=== PATIENT | male | born 1975 | race Two or more races ===

== ENCOUNTER 2018-12-19 09:28 | Emergency (ER) | payer MEDICAID, OTHER ==
[~2018-12-19] VITALS: Ht 172.7 cm; Wt 115.7 kg
[2018-12-19 11:48] LABS: Basophils # (auto) 0.1 uL; Basophils % (auto) 0.6 % (0.0-2.0); Lymphocytes # (auto) 2.4 uL
[2018-12-19 11:51] LABS: Eosinophils # (auto) 0 uL; Eosinophils % (auto) 0.5 % (0.0-7.0); Hematocrit 47.3 % (41.0-53.0); Hemoglobin 15.2 g/dL (13.5-17.5); Lymphocytes % (auto) 25.5 % (10.0-50.0); Mean Corpuscular Hemoglobin 25.2 pg (28.0-32.0); Mean Corpuscular Volume 78.7 fL (80.0-100.0); Monocytes % (auto) 10.6 % (0.0-12.0); Neutrophils % (auto) 62.8 % (37.0-80.0); Nucleated Red Blood Cells % 0.1 %; Platelet Count (auto) 348 10^3/uL (140-450); Red Blood Cells 6.01 10^6/uL (4.5-5.90); Red Cell Distribution Width 18.3 % (11.8-14.3); White Blood Cell 9.5 10^3/uL (4.4-10.8)
[2018-12-19 12:15] LABS: Chloride 111 mmol/L (98-107); Potassium 3.5 mmol/L (3.5-5.1); Sodium 144 mmol/L (136-145)
[2018-12-19 12:25] LABS: Alanine Aminotransferase 51 U/L (16-61); Alkaline Phosphatase 135 U/L (45-117); Anion Gap 10 (5-15); Aspartate Aminotransferase 26 U/L (15-37); BUN/Creatinine Ratio 16.7; Bilirubin, Total 0.6 mg/dL (0.2-1.0); Blood Urea Nitrogen 15 mg/dL (7-18); Calcium 8.9 mg/dL (8.5-10.1); Carbon Dioxide 23 mmol/L (21-32); GFR African American 119 mL/min; GFR Non-African American 98 mL/min; Glucose 91 mg/dL (74-106); Total Protein 7.9 g/dL (6.4-8.2)
[2018-12-19 13:11] VITALS: BP 143/96
== END 2018-12-19 13:12 | disposition home or self-care (01) ==
LOC: EDBD 09:28 → ER 09:31
DX: R07.89 Other chest pain (principal); F15.10 Other stimulant abuse, uncomplicated; R51 Headache; F17.210 Nicotine dependence, cigarettes, uncomplicated; E11.9 Type 2 diabetes mellitus without complications; Z90.49 Acquired absence of other specified parts of digestive tract
CPT/HCPCS: 36415; 71045; 80053; 84484; 85025; 93005

== ENCOUNTER 2022-09-19 06:39 | Emergency (ER) | payer MEDICAID ==
[~2022-09-19] VITALS: Ht 185.4 cm; Wt 106.6 kg
[2022-09-19 07:20] VITALS: BP 153/92
[2022-09-19] MEDS ORDERED: ACETAMINOPHEN 500 MG TAB PO STA (07:39)
[2022-09-19] MEDS ORDERED: ACET500T58 PO (07:46)
[2022-09-19] MEDS ORDERED: AZIT4SOL OP (07:46)
== END 2022-09-19 08:13 | disposition home or self-care (01) ==
LOC: EDBD 06:39 → ER 06:39
DX: H10.89 Other conjunctivitis (principal); E11.9 Type 2 diabetes mellitus without complications; F17.210 Nicotine dependence, cigarettes, uncomplicated; Z90.49 Acquired absence of other specified parts of digestive tract
CPT/HCPCS: 93005

== ENCOUNTER 2023-12-08 10:15 | Emergency (ER) | payer MEDICAID ==
[~2023-12-08] VITALS: Ht 188 cm; Wt 105.5 kg
[~2023-12-08 10:15] MED LIST: ACET500T58 PO; AZIT4SOL OP
[2023-12-08 11:01] VITALS: BP 139/94; PULSE 94; RESP 18; TEMP 98.9; O2SAT 98
[2023-12-08] MEDS: KETOROLAC TROMETH 30 MG/ML 1ML VIAL IM ONE (11:28)
== END 2023-12-08 12:43 | disposition left against medical advice (07) ==
LOC: ER 10:15
DX: J90 Pleural effusion, not elsewhere classified (principal); M54.6 Pain in thoracic spine; R07.81 Pleurodynia; M25.561 Pain in right knee; E11.9 Type 2 diabetes mellitus without complications; F17.210 Nicotine dependence, cigarettes, uncomplicated; Z98.890 Other specified postprocedural states; Z79.899 Other long term (current) drug therapy; V89.2XXA Person injured in unspecified motor-vehicle accident, traffic, initial encounter; Y93.I9 Activity, other involving external motion; Y92.411 Interstate highway as the place of occurrence of the external cause; Y99.8 Other external cause status
CPT/HCPCS: 71045; 72100; 73562; 96372; 99284; J1885

== ENCOUNTER 2024-01-18 14:57 | Emergency (ER) | payer MEDICAID, OTHER ==
[~2024-01-18] VITALS: Ht 185.4 cm; Wt 100.0 kg
[2024-01-18 15:25] VITALS: PULSE 109; RESP 14; O2SAT 14
[2024-01-18 15:51] LABS: Basophils # (auto) 0.1 10 ^3/uL (0-0.2); Eosinophils # (auto) 0.2 10 ^3/uL (0-0.8)
[2024-01-18 16:00] LABS: Basophils % (auto) 0.9 % (0.0-2.0); Lymphocytes # (auto) 2.9 10 ^3/uL (0.4-5.4); Neutrophils # (auto) 6.6 10 ^3/uL (1.6-8.6)
[2024-01-18 16:01] LABS: Eosinophils % (auto) 1.7 % (0.0-7.0); Hemoglobin 19.9 g/dL (13.5-17.5); Lymphocytes % (auto) 26.7 % (10.0-50.0); Mean Corpuscular Hgb Conc. 34.2 g/dL (32.0-36.0); Mean Corpuscular Volume 90.6 fL (80.0-100.0); Monocytes % (auto) 9.6 % (0.0-12.0); Neutrophils % (auto) 61.1 % (37.0-80.0); Nucleated Red Blood Cells % 0.4 %; Platelet Count (auto) 272 10^3/uL (140-450); Red Blood Cells 6.42 10^6/uL (4.5-5.90); Red Cell Distribution Width 14.1 % (11.8-14.3); White Blood Cell 10.8 10^3/uL (4.4-10.8)
[2024-01-18] MEDS: SODIUM CHLORIDE 0.9% 1,000 ML IV ONE (16:02)
[2024-01-18 16:04] LABS: Hematocrit 58.1 % (41.0-53.0)
[2024-01-18 16:08] LABS: Alanine Aminotransferase 55 U/L (7-40); Alkaline Phosphatase 148 U/L (46-116); Anion Gap 9 (5-15); Aspartate Aminotransferase 18 U/L (13-40); BUN/Creatinine Ratio 14.4 (10.0-20.0); Bilirubin, Total 0.6 mg/dL (0.2-1.0); Blood Urea Nitrogen 16 mg/dL (9-23); Calcium 10.4 mg/dL (8.7-10.4); Carbon Dioxide 28 mmol/L (20-31); Chloride 105 mmol/L (98-107); Glucose 164 mg/dL (74-106); Potassium 4.2 mmol/L (3.5-5.1); Sodium 142 mmol/L (136-145); Total Protein 7.7 g/dL (5.7-8.2)
[2024-01-18 16:09] LABS: Urine Bacteria FEW /hpf (None Seen); Urine Blood 1+ /uL (Negative); Urine Clarity Clear (Clear); Urine Color Light-Yellow (Yellow); Urine Mucus FEW (None Seen); Urine Protein, UAD 1+ (Negative); Urine Specific Gravity 1.025 (1.001-1.035); Urine Sperm PRESENT /hpf (None Seen); Urine Urobilinogen Normal (Negative); Urine WBC 2 /hpf (0 - 3)
[2024-01-18 16:15] LABS: Amphetamine Screen, Urine Pos (NEGATIVE); Barbiturate Scree,Urine Neg (NEGATIVE); Benzodiazephine Screen, Urine Neg (NEGATIVE); Cannabinoid Screen, Urine Neg (NEGATIVE); Cocaine Screen, Urine Neg (NEGATIVE); Opiate Scree,Urine Neg (NEGATIVE); Phencyclidine Screen, Urine Neg (NEGATIVE)
[2024-01-18 16:38] LABS: INR 1.03 (0.9-1.15); Partial Thromboplastin Time 29.6 SEC (24.5-34.5); Prothrombin Time 10.9 sec (9.3-11.8)
[2024-01-18] MEDS: LABETALOL HCL 20 MG/4 ML VL IV ONE (18:28)
[2024-01-18 19:20] VITALS: BP 138/99; PULSE 87; RESP 14; O2SAT 93
== END 2024-01-18 19:20 | disposition left against medical advice (07) ==
LOC: ER 14:57 → EDBD 14:57 → EDUNIT# 14:57 → ER 19:20
DX: I20.0 Unstable angina (principal); F15.10 Other stimulant abuse, uncomplicated; R06.6 Hiccough; E11.9 Type 2 diabetes mellitus without complications; F17.200 Nicotine dependence, unspecified, uncomplicated; Z90.49 Acquired absence of other specified parts of digestive tract; Z79.899 Other long term (current) drug therapy
CPT/HCPCS: 36415; 71045; 80053; 80307; 81001; 83735; 84484; 85025; 85610; 85730; 93005; 96361; 96374; 99285; J7030

== ENCOUNTER 2024-10-18 00:09 | Emergency (ER) | payer MEDICAID ==
[~2024-10-18] VITALS: Ht 182.9 cm; Wt 100.0 kg
--- NOTE | 2024-10-18 00:20 | ED.PDOC ---
General HPI Comments 48-year-old male came to ER via EMS for left-sided low back/flank pain. Patient has history of methamphetamine abuse, states for the past 5 days he has been having intermittent episodes of left flank pains, nonradiating, unprovoked. Denies any nausea or vomiting. Denies any symptoms such as dysuria or gross hem aturia. Patient states he had similar flank pains before, but never went for consult. Patient was hypertensive on arrival. Chief Complaint: Flank pain Time Seen by MD: 00:20 Primary Care Provider: UNKNOWN NAME Reviewed notes: Nurses Notes, Computer Designer Notes Allergies: Coded Allergies: NO KNOWN ALLERGIES (Unverified , 12/19/18) Home Meds Active Scripts Acetaminophen (Acetaminophen) 500 Mg Tab, 500 MG PO TIDP PRN for 7 Days, #21 TAB 0 Refills Prov:CHARLEE TERRAZAS THIRD HAND 09/19/22 Azithromycin (Ophth) (Azasite) 1 % Aruna, 1 % OP BID for 2 Days, #1 KIT 0 Refills Insert 1 drop into the affected eye twice daily for 2 days, then once daily for 5 days Prov:CHARLEE TERRAZAS THIRD HAND 09/19/22 Information Source: Patient, Emergency Med Personnel Mode of Arrival: EMS Severity: Moderate Inability to void: Mild Timing: Days Duration: Intermittent Prehospital treatment: None Symptoms: None History of: None Location: (L)Flank associated signs and symptoms: Flank Pain Past Medical History PAST MEDICAL HISTORY: DM, HTN Surgical History: Cholecystectomy, Denies all surgeries Family History Family History: Reviewed,noncontributory to illness, No family hx of Cancer, No family hx of Lung carlos, Family hx of DM Social History Smoker: Unknown Alcohol: Denies ETOH Use Drugs: Methamphetamine Lives In: Home Constitutional: denies: chills, diaphoresis, fatigue, fever, malaise, sweats, weakness, others EENTM: denies: blurred vision, double vision, ear bleeding, ear discharge, ear drainage, ear pain, ear ringing, eye pain, eye redness, hearing loss, mouth pain, mouth swelling, nasal discharge, nose bleeding, nose congestion, nose pain, photophobia, tearing, throat pain, throat swelling, voice changes, others Respiratory: denies: cough, hemoptysis, orthopnea, SOB at rest, shortness of breath, SOB with excertion, stridor, wheezing, others Cardiovascular: denies: chest pain, dizzy spells, diaphoresis, Dyspnea on exertion, edema, irregular heart beat, left arm pain, lightheadedness, palpitations, PND, syncope, others Gastrointestinal: denies: abdomen distended, abdominal pain, blood streaked bowels, constipated, diarrhea, dysphagia, difficulty swallowing, hematemesis, melena, nausea, poor appetite, poor fluid intake, rectal bleeding, rectal pain, vomiting, others Genitourinary: reports: flank pain (Left); denies: burning, dysuria, frequency, hematuria, incontinence, penile discharge, penile sore, pain, testicle pain, testicle swelling, urgency, others Neurological: denies: dizziness, fainting, headache, left sided numbness, left sided weakness, numbness, paresthesia, pre-existing deficit, right sided numbness, right sided weakness, seizure, speech problems, tingling, tremors, weakness, others Musculoskeletal: denies: back pain, gout, joint pain, joint swelling, muscle pain, muscle stiffness, neck pain, others Integumetry: denies: bruises, change in color, change in hair/nails, dryness, laceration, lesions, lumps, rash, wounds, others Allergic/Immunocompromised: denies: Difficulty Healing, Frequent Infections, Hives, Itching, others Hematologic/Lymphatic: denies: anemia, blood clots, easy bleeding, easy bruis ing, swollen glands, others Endocrine: denies: excessive hunger, excessive sweating, excessive thirst, exc essive urination, flushing, intolerance to cold, intolerance to heat, unexplained weight gain, unexplained weight loss, others Psychiatric: denies: anxiety, bipolar disorder, depression, hopeless, panic disorder, schizophrenia, sleepless, suicidal, others Physical Exam General Appearance: Moderate Distress (Due to left-sided low back/flank pain concerns), Normal HEENT: Normal ENT Inspection, Pharynx Normal, TMs Normal Neck: Full Range of Motion, Non-Tender, Normal, Normal Inspection Respiratory: Chest Non-Tender, Lungs Clear, No Accessory Muscle Use, No Respiratory Distress, Normal Breath Sounds Cardiovascular: No Edema, No JVD, No Murmur, No Gallop, Normal Peripheral Pulses, Regular Rate/Rhythm Breast Exam: Deferred Gastrointestinal: No Pulsatile Mass, Normal Bowel Sounds, Soft, Tenderness (Diffuse left-sided tenderness to palpation in her around the CVA region. Pain extends into the abdomen. No signs of trauma.) Genitalia: Deferred Pelvic: Deferred Rectal: Deferred Extremities: No calf tenderness, Normal capillary refill, Normal inspection, Normal range of motion, Non-tender, No pedal edema Musculoskeletal : Apperance: Normal Neurologic: Alert, No Motor Deficits, Normal Affect, Normal Mood, No Sensory Deficits Cerebellar Function: Normal Reflexes: Normal Skin: Dry, Normal Color, Warm Lymphatic: No Adenopathy Was a procedure done? Was a procedure done?: No Differential Diagnosis Kidney stone (Female): Urolithiasis Kidney stone (Male): Pyelonephritis, Urinary obstruction, Renal infarction Urinary Problem (Male): Urethritis, Urinary Retention, UTI X-Ray, Labs, Meds, VS Vital Signs Date Time Temp Pulse Resp B/P (MAP) Pulse Ox O2 Delivery O2 Flow Rate FiO2 10/18/24 00:45 98.3 100 19 141/98 (112) 98 98.3 10/18/24 00:45 Room Air* 0 21 10/18/24 00:15 98.3 100 19 141/98 (112) 98 98.3 Lab Test 10/18/24 00:28 Range/Units Urine Color Yellow Yellow Urine Clarity Clear Clear Urine pH 5.0 5.0-9.0 Urine Specific [place] 1.045 H 1.001-1.035 Urine Protein Negative Negative Urine Ketones 1+ H Negative Urine Blood 1+ H Negative /uL Urine Nitrite Negative Negative Urine Bilirubin Negative Negative Urine Urobilinogen Normal Negative mg/dL Urine Leukocyte Esterase Negative Negative /uL Urine RBC 9 0 - 3 /hpf Urine Microscopic WBC 1 0-3 /HPF Urine Squamous Epithelial Cells Few <5 /hpf Urine Bacteria None seen None Seen /hpf Urine Mucus Few None Seen Urine Glucose 4+ H Normal mg/dL Current Medications Medications (Trade) Dose Ordered Sig/Rogelio Route Start Time Stop Time Status Last Admin Acetaminophen/ Hydrocodone Bitart ([place] 10/325MG Tab) 1 tab ONCE ONCE PO 10/18/24 00:30 10/18/24 00:31 DC 10/18/24 00:54 X-Ray, Labs, Meds, VS Comment All studies performed the ED were evaluated by me personally. Urinalysis was unremarkable for any urinary tract infections or signs of pyelonephritis. Patient did have some mild blood deposits. CT of the abdomen and pelvis denied any hydronephrosis or nephrolithiasis. Patient did have severe osteoarthritis of the right hip as well as mild prostatomegaly and mild hepatomegaly. Patient states he was doing some lifting and that his condition may be musculoskeletal. Advised patient utilize pain medication as needed as well as ice therapy. Time of 1ST Reevaluation: 02:06 Reevaluation 1ST: Improved Consultation: PCP Patient Education/Counseling: Diagnosis, Treatment Family Education/Counseling: Diagnosis, Treatment, No Family Present SEPSIS Sepsis Screen Recent Procedure: No On Antibiotic Therapy: No Respiratory Rate >20: No Heart Rate >90: No Temp<36 C (96.8 F) or >38.3 C: No SBP <90 or MAP <65 mmHG: No New Acute Mental Status Change: No Is the patient on CPAP, BIPAP,: No Physician Orders Ct Ab Pel Wo Con-No Oral Or Iv (10/18/24 00:17) Vital Signs Date Time Temp Pulse Resp B/P (MAP) Pulse Ox O2 Delivery O2 Flow Rate FiO2 10/18/24 00:45 98.3 100 19 141/98 (112) 98 98.3 10/18/24 00:45 Room Air* 0 21 10/18/24 00:15 98.3 100 19 141/98 (112) 98 98.3 Medications Medications Dose Ordered Sig/Rogelio Route Start Time Stop Time Status Last Admin Dose Admin Acetaminophen/ Hydrocodone Bitart 1 tab ONCE ONCE PO 10/18/24 00:30 10/18/24 00:31 DC 10/18/24 00:54 Departure 1 Departure Time of Disposition: 02:06 Impression: Primary Impression: Low back pain Additional Impressions: BPH (benign prostatic hyperplasia) Hepatomegaly Osteoarthritis of right hip Disposition: 01 HOME / SELF CARE / HOMELESS Condition: Stable Additional Instructions: Advised patient utilize pain medication as needed and additionally, patient should follow up with his primary care provider for discussions related to today's visit as well as imaging findings. e-Prescriptions Hydrocodone-Acetaminophen (Hydrocodone Bitartrate/AC 5-325 mg) 1 Tab Tab 1 TAB PO Q6HP PRN, #15 TAB Prov: LUCITA DONNELLY PAC 10/18/24 Ibuprofen Micronized (Ibuprofen) 800 Mg Tab 800 MG PO Q8HP PRN, #20 TAB Prov: LUCITA DONNELLY PAC 10/18/24 Discharged With: Self, Spouse Critical Care Note Critical Care Time?: No Stability Stability form required: No Heart Score Heart Score: Heart Score Response (Comments) Value History N/A 0 EKG N/A 0 Age N/A 0 Risk Factors N/A 0 Troponin N/A 0 Total 0 I personally scribed for LUCITA DONNELLY PAC ([email or web address]) on 10/18/24 at 00:20. El ectronically submitted by Nimesh Phillips ([facility]). LUCITA DONNELLY PAC Oct 18, 2024 00:20
[2024-10-18 00:45] VITALS: BP 141/98; PULSE 100; RESP 19; TEMP 98.3; O2SAT 98
[2024-10-18] MEDS: HYDROcodone-ACET 10/325MG TAB PO ONE (00:54)
[2024-10-18 01:17] LABS: Urine Protein, UAD Negative (Negative)
--- NOTE | 2024-10-18 01:49 | DVH ---
CLINICAL HISTORY: Left-sided flank pain TECHNIQUE: CT of the abdomen and pelvis was performed without intravenous contrast. This exam was per formed according to our departmental dose optimization program. Up-to-date CT equipment and radiation dose reduction techniques are utilized as appropriate. CTDI: 19.28+ 0.14 DLP: 1363.58 WID: COMPARISON: None FINDINGS: Lower Thorax: Linear bibasilar scarring or atelectasis. Normal-sized heart. Liver and Biliary system: Measuring 19 cm craniocaudal. There is a well-defined hypodensity in segmen t 4A/ 8 of the liver which could reflect a cyst although not optimally evaluated on this study. Prio r cholecystectomy without biliary ductal dilatation. Spleen: Unremarkable. Adrenal Glands and Kidneys: Normal adrenal glands. No hydronephrosis or nephrolithiasis. Pancreas and Retroperitoneum: Unremarkable. Aorta and Major Vessels: Aortoiliac vessels are normal in caliber with mild calcified atherosclerotic plaque. Bowel, Mesentery and Peritoneal space: Normal caliber small and large bowel. There is no free air or fluid collection. Pelvis: Mild prostatomegaly. Urinary bladder is mildly distended. There is no pelvic lymphadenopathy . Abdominal wall and Osseous Structures: Small fat containing bilateral inguinal hernias. Severe osteoa rthritis of the right hip with marked joint space narrowing, prominent collar osteophyte formation an d subchondral cysts and sclerosis. Mild osteoarthritis of the left hip. Minor lower thoracic and lumb ar spondylosis. IMPRESSION: No hydronephrosis or nephrolithiasis. Severe osteoarthritis of the right hip. Mild prostatomegaly. Mild hepatomegaly.
[2024-10-18] MEDS ORDERED: HYDR-4902 PO (02:08)
[2024-10-18] MEDS ORDERED: IBUP-1455 PO (02:08)
[2024-10-19] MEDS ORDERED: PERCOT PO (08:25)
== END 2024-10-18 02:49 | disposition home or self-care (01) ==
LOC: ER 00:09 → EDBD 00:09 → ER 02:49
DX: M54.50 Low back pain, unspecified (principal); N40.0 Benign prostatic hyperplasia without lower urinary tract symptoms; M16.11 Unilateral primary osteoarthritis, right hip; R16.0 Hepatomegaly, not elsewhere classified; F19.90 Other psychoactive substance use, unspecified, uncomplicated; E11.9 Type 2 diabetes mellitus without complications; I10 Essential (primary) hypertension; Z90.49 Acquired absence of other specified parts of digestive tract; Z79.899 Other long term (current) drug therapy
CPT/HCPCS: 74176; 81001

== ENCOUNTER 2024-12-09 01:31 | Emergency (ER) | payer MEDICAID ==
[~2024-12-09] VITALS: Ht 185.4 cm; Wt 100.0 kg
[~2024-12-09 01:31] MED LIST changes: +HYDR-4902 PO; +IBUP-1455 PO; +PERCOT PO
[2024-12-09 01:40] VITALS: BP 162/95; RESP 28; TEMP 99.1; O2SAT 95
--- NOTE | 2024-12-09 02:02 | ED.PDOC ---
HPI Comments HPI: 49 year old male presents to the emergency department via EMS with a chief complaint of chest pain onset 1 day. Patient has been experiencing LT sided chest pain for the past day, around midnight he was sitting down, watching tv, when he noticed pain worsened, took aspirin prior to EMS arrival. Upon EMS arrival, patient's pain was 7/10, was given Nitro, pain improved to 2/10. BG was 235. He took Methamphetamine 4 days ago. Denies nausea, vomiting, diarrhea, dizziness, fever, chills, shortness of breath, cough, congestion, headache. No other symptoms or modifying factors present at this time. Initial Vitals BP: HR: RR: O2: Temp: Past Medical History: HTN, DM, HLD Past Surgical History: laparoscopic esophageal repair, cholecystectomy Social History: Denies ETOH, smoking, and drug use. Medications: unknown Allergies: NKDA HPI: Poor Historian. Past Medical History: Past Surgical History: REVIEW OF SYSTEMS: CONSTITUTIONAL: Denies acute: fever, diaphoresis, chills, HEAD: Denies acute: headache, photophobia Eyes: Denies acute: Double vision, vision loss, eye pain, eye discharge. EARS: Denies acute: tinnitus, hearing loss, ear discharge, ear pain, THROAT: Denies acute: sore throat, swelling, difficulty swallowing , pain with swallowing, change in voice. NECK: Denies acute: neck pain, neck swelling, stiff neck. HEART: Denies acute : palpitations, LUNGS: Denies acute: SOB, wheezing, cough, hemoptysis ABDOMEN: Denies acute: abdominal pain, Nausea, Vomiting, diarrhea, melena , hematemesis, hematochezia SKIN: Denies acute: rash, redness, lesions, itchiness. EXTREMITIES: Denies acute: calf pain, numbness, tingling, weakness, denies pain in extremity. Denies acute: Low back pain. Neuro: Denies acute: focal neurological deficit, motor or sensory focal neurological deficit, tremors, seizure like activity, confusion, dizziness, change in mental status, loss of bowel or bladder function, cauda equina like symptoms. : Denies acute: dysuria, hematuria, flank pain, increase in urinary frequency. PSYCH: Denies acute: hallucination, suicidal ideation, homicidal ideation. PHYSICAL EXAM: General: ----mild----acute distress, awake and alert. Head: normocephalic, atraumatic. Neck: supple, trachea is midline, no swelling. Throat: Normal phonation. Eyes:, no erythema, no purulent discharge, no proptosis, no icterus. Heart: regular tachycardia, no significant murmur appreciated. Lungs: no apparent respiratory distress, Able to speak in full sentences. No wheezing, no rhonchi, no crackles. No stridors Clear to auscultation bilaterally. Abdomen: Epigastric tender to palpation, non distended, soft, no guarding, no rebound, + bowel sounds. Neuro: Awake, Alert, oriented to name, self, situation, follows commands GCS=15. Speech is normal. Skin: no petechia, no purpura, no cyanosis, non-pale, not jaundice. Lower extremities: --no - Pitting edema no deformity, no focal swelling, no calf TTP. Makes eye contact. moves all four extremities. Face: no apparent facial droop. Ambulating in the ED independently. ED COURSE: DISCLAIMER: This medical document was created using an electronic medical record system with voice recognition software and computerized dictation system. Although this document has been carefully reviewed, there might still be some phonetic and typographical errors. Occasional wrong-word or "sound-alike" substitutions may have occurred due to the inherent limitations of voice recognition software. These areas are purely typographical due to imperfections of the software prog man and do not reflect any compromise in the patient's medical care. Please read the chart carefully and recognize, using context, where these substitutions have occurred. Chief Complaint: Chest Pain Time Seen by MD: 01:55 Primary Care Provider: UNKNOWN NAME Reviewed Notes: Medications, Allergies Allergies: Coded Allergies: NO KNOWN ALLERGIES (Unverified , 12/19/18) Home Meds Active Scripts Oxycodone W/ Acetaminophen (Percocet 5/325MG) 1 Tab Tb, 1 TAB PO QID PRN for 4 Days, #16 TAB Prov:LINNEA MCCORD MD 10/19/24 Hydrocodone-Acetaminophen (Hydrocodone Bitartrate/AC 5-325 mg) 1 Tab Tab, 1 TAB PO Q6HP PRN, #15 TAB Prov:LUCITA DONNELLY PAC 10/18/24 Ibuprofen Micronized (Ibuprofen) 800 Mg Tab, 800 MG PO Q8HP PRN, #20 TAB Prov:LUCITA DONNELLY PAC 10/18/24 Acetaminophen (Acetaminophen) 500 Mg Tab, 500 MG PO TIDP PRN for 7 Days, #21 TAB 0 Refills Prov:CHARLEE TERRAZAS FUGITIVE INVESTIGATOR 09/19/22 Azithromycin (Ophth) (Azasite) 1 % Aruna, 1 % OP BID for 2 Days, #1 KIT 0 Refills Insert 1 drop into the affected eye twice daily for 2 days, then once daily for 5 days Prov:CHARLEE TERRAZAS FUGITIVE INVESTIGATOR 09/19/22 Information Source: Patient, Emergency Med Personnel Mode of Arrival: EMS Severity: Moderate Timing: Days Duration: Since onset Prehospital treatment: Other (aspirin, nitro) Location: Chest (L) Radiation: No Radiation Quality: Sharp Onset: At Rest Cardiac Risk Factors: Hyperlipidemia, HTN, Diabetes, Drugs PE Risk Factors: None History of: Aspirin Modifying Factors: Nothing Past Medical History PAST MEDICAL HISTORY: DM, High Lipids, HTN Surgical History: Cholecystectomy Surgical History (Other): esophageal repair Family History Family History: Reviewed,noncontributory to illness, No family hx of Cancer, No family hx of Lung carlos, No family hx of Stroke, Family hx of DM Social History Smoker: Unknown Alcohol: Denies ETOH Use Drugs: Methamphetamine Lives In: Home Was a procedure done? Was a procedure done?: No CP Differential Dx Differential Diagnosis: N/A Differential Diagnosis: Other (Ddx include but not limitied to gastritis, musculoskeletal pain, radiculopathy, atypical chest pain, dissection, aneurysm, ACS, unstable angina, hiatal hernia, GERD, anxiety, costochondritis, PE, pneumothroax, neoplasm, cardiac ischemia, drug abuse, anemia.) X-Ray, Labs, Meds, VS Vital Signs Date Time Temp Pulse Resp B/P (MAP) Pulse Ox O2 Delivery O2 Flow Rate FiO2 12/09/24 04:06 101 12/09/24 02:43 106 12/09/24 01:44 107 12/09/24 01:40 99.1 116 28 162/95 95 99.1 Lab Test 12/09/24 02:42 12/09/24 01:40 Range/Units Troponin I High Sensitivity < 3 L < 3 L </=54 ng/L White Blood Count 5.9 4.4-10.8 10^3/uL Red Blood Count 5.39 4.5-5.90 10^6/uL Hemoglobin 16.6 13.5-17.5 g/dL Hematocrit 47.6 41.0-53.0 % Mean Corpuscular Volume 88.4 80.0-100.0 fL Mean Corpuscular Hemoglobin 30.7 28.0-32.0 pg Mean Corpuscular Hemoglobin Concent 34.7 32.0-36.0 g/dL Red Cell Distribution Width 13.6 11.8-14.3 % Platelet Count 220 140-450 10^3/uL Mean Platelet Volume 7.1 6.9-10.8 fL Neutrophils (%) (Auto) 73.9 37.0-80.0 % Lymphocytes (%) (Auto) 8.4 L 10.0-50.0 % Monocytes (%) (Auto) 15.8 H 0.0-12.0 % Eosinophils (%) (Auto) 1.2 0.0-7.0 % Basophils (%) (Auto) 0.7 0.0-2.0 % Neutrophils # (Auto) 4.4 1.6-8.6 10 ^3/uL Lymphocytes # (Auto) 0.5 0.4-5.4 10 ^3/uL Monocytes # (Auto) 0.9 0-1.3 10 ^3/uL Eosinophils # (Auto) 0.1 0-0.8 10 ^3/uL Basophils # (Auto) 0 0-0.2 10 ^3/uL Nucleated Red Blood Cells 0.1 % Sodium Level 134 L 136-145 mmol/L Potassium Level 3.7 3.5-5.1 mmol/L Chloride Level 102 98-107 mmol/L Carbon Dioxide Level 20 20-31 mmol/L Anion Gap 12 5-15 Blood Urea Nitrogen 8 L 9-23 mg/dL Creatinine 0.85 0.700-1.30 mg/dL Glomerular Filtration Rate Calc 107 >90 mL/min BUN/Creatinine Ratio 9.4 L 10.0-20.0 Serum Glucose 240 H 74-106 mg/dL Calcium Level 8.9 8.7-10.4 mg/dL Total Bilirubin 0.4 0.2-1.0 mg/dL Aspartate Amino Transferase (AST) 21 13-40 U/L Alanine Aminotransferase (ALT) 33 7-40 U/L Alkaline Phosphatase 117 H 46-116 U/L Total Protein 6.8 5.7-8.2 g/dL Albumin 4.3 3.2-4.8 g/dL Lipase 39 12-53 U/L [place] [id number] Ph: [phone] DIAGNOSTIC IMAGING Diagnostic Imaging Report : [id number] Signed PATIENT: VICKIE SAEZ ACCT: [id number] UNIT: [id number] : 1975 LOC: ER ROOM / BED: / AGE / SEX: 49 / M ADM STATUS: REG ER SERVICE 0300 ORDERING PHYSICIAN: MARIA E KIDD DO PROCEDURE(s): ABPL - CT AB PEL WO CON-NO ORAL OR IV REASON: epig pain ORDER NUMBER(s): [id number], ACCESSION NUMBER(s): [id number] Exam: CT CT AB PEL WO CON-NO ORAL OR IV History: epig pain Comparison Study: CT CT AB PEL WO CON-NO ORAL OR IV on DOS: 10/18/24 Technique: Multidetector spiral CT of the abdomen was performed from lung bases to pubic symphysis. Imaging was performed without IV contrast. Axial, coronal and sagittal multiplanar reformats were obtained from the axial data set by the technologist. Radiation Dose : 1. Abdomen/Pelvis: CTDIvol 14.92 mGy, DLP 3.92 mGy*cm. Findings: Evaluation of solid organs is limited due to lack of intravenous contrast use. Lower Chest: No acute findings. Liver: Diffuse hypoattenuation. Unchanged cyst at the dome. Gallbladder and Biliary Tree: Cholecystectomy change. Pancreas: Mild atrophy. Spleen: Unremarkable. Adrenal Glands: Unremarkable. Kidneys/Ureters: No urinary stone or obstruction. Bladder: Grossly unremarkable for degree of distention. Pelvic Organs: Prostatomegaly. Bowel: Normal caliber without wall thickening. No evidence of appendicitis. Small hiatal hernia. Few colonic diverticula without diverticulitis. Fecal contents in small bowel loops compatible with slow transit. Vasculature: Unremarkable. Lymphadenopathy: No obvious adenopathy. Peritoneum: No ascites, free air, or fluid collection. Abdominal Wall: No significant hernia. Musculoskeletal: No acute findings. Severe right hip osteoarthrosis. IMPRESSION: 1. No acute abdominopelvic abnormality, evidence of urinary stone or obstruction, or significant change from prior exam. 2. Chronic and incidental findings above. Radiation optimization: All CT scans at this facility use at least one of these dose optimization techniques: automated exposure control mA and/or kV adjustment per patient size (includes targeted exams where dose is matched to clinical indication) or iterative reconstruction. ATED BY: SHANEKA LINTON MD DICTATED DATE/TIME: 12/09/24329 SIGNED BY: SHANEKA LINTON MD SIGNED DATE/TIME: 12/09/24329 CC: [place] [id number] Ph: [phone] DIAGNOSTIC IMAGING Diagnostic Imaging Report : [id number] Signed PATIENT: VICKIE SAEZ ACCT: [id number] UNIT: [id number] : 1975 LOC: ER ROOM / BED: / AGE / SEX: 49 / M ADM STATUS: REG ER SERVICE 1 ORDERING PHYSICIAN: MARIA E KIDD DO PROCEDURE(s): CXR1 - CHEST XRAY 1 VIEW REASON: CHEST PAIN ORDER NUMBER(s): [id number], ACCESSION NUMBER(s): [id number] CHEST RADIOGRAPH Indication: CHEST PAIN Technique: Single frontal view of the chest was obtained Comparison: XY CHEST PORTABLE on DOS: 01/18/24, XY CHEST XRAY 1 VIEW on DOS: 12/08/23, CHEST PORTABLE on DOS: 12/19/18 IMPRESSION: Heart is mildly prominent in size. No focal airspace opacity, effusion, or pneumothorax. The patient is rotated to the right, however there is possible ovoid fullness around the right hilum. CT of the chest with contrast is recommended. ATED BY: KATLYN ACEVEDO MD DICTATED DATE/TIME: 12/09/24323 SIGNED BY: KATLYN ACEVEDO MD SIGNED DATE/TIME: 08/27/25 0324 CC: Time of 1ST Reevaluation: 02:25 Reevaluation 1ST: Unchanged Patient Education/Counseling: Diagnosis, Treatment Family Education/Counseling: No Family Present Comments MDM: patient presented with the above HPI.---cardiac---workup was initiated. patient was found with the above mentioned diagnosis. the following medications were ordered: please refer to order lists of meds and tests obtained by myself Dr. Kidd. Patient ED course and VS have been stabilized. Patient has been reassessed in the ED and remained in a stable condition. Patient has been observed in the ED adequate length of time to insure improvement/stability. Escalation of care considered: Consideration of escalation to observation or admission Patient was ADMITTED to the medicine team for further evaluation and treatment of their presentation. However I was told that the patient eloped. All the reports of any imaging studies that were ordered by myself were reviewed by myself. Departure 1 Departure Time of Disposition: 04:36 Impression: Primary Impression: Chest pain Additional Impressions: Methamphetamine abuse Eloped from emergency department Disposition: ADMITTED INPATIENT Admit to: [facility] Condition: Guarded Discharged With: Self Critical Care Note Critical Care Time?: No Heart Score Heart Score: Heart Score Response (Comments) Value History Moderate Suspicious 1 EKG Normal 0 Age 45-64 1 Risk Factors >3 or Hx ASHD 2 Troponin Normal limit 0 Total 4 I personally scribed for MARIA E KIDD DO ([email or web address]) on 12/09/24 at 02:02. Electronically submitted by Rachel Chavez ([email or web address]). I personally scribed for MARIA E KIDD DO ([email or web address]) on 12/09/24 at 02:10. Electronically submitted by Rachel Chavez ([email or web address]). I personally scribed for MARIA E KIDD DO ([email or web address]) on 12/09/24 at 04:21. Electronically submitted by Rachel Chavez ([email or web address]). I personally scribed for MARIA E KIDD DO ([email or web address]) on 12/09/24 at 04:29. Electronically submitted by Rachel Chavez ([email or web address]). MARIA E KIDD DO Dec 09, 2024 02:02
--- NOTE | 2024-12-09 02:06 | ECG ---
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
[2024-12-09] MEDS ORDERED: LORazepam 2MG/ML-1ML VIAL IV ONE (02:15)
[2024-12-09] MEDS ORDERED: SODIUM CHLORIDE 0.9% 1,000 ML IV ONE (02:15)
[2024-12-09 02:23] LABS: Hematocrit 47.6 % (41.0-53.0); Hemoglobin 16.6 g/dL (13.5-17.5); Mean Corpuscular Hemoglobin 30.7 pg (28.0-32.0); Mean Corpuscular Volume 88.4 fL (80.0-100.0); Nucleated Red Blood Cells % 0.1 %
[2024-12-09 02:30] LABS: Alanine Aminotransferase 33 U/L (7-40); Albumin 4.3 g/dL (3.2-4.8); Alkaline Phosphatase 117 U/L (46-116); Anion Gap 12 (5-15); BUN/Creatinine Ratio 9.4 (10.0-20.0); Bilirubin, Total 0.4 mg/dL (0.2-1.0); Blood Urea Nitrogen 8 mg/dL (9-23); Calcium 8.9 mg/dL (8.7-10.4); Carbon Dioxide 20 mmol/L (20-31); Chloride 102 mmol/L (98-107); Glucose 240 mg/dL (74-106); Lipase 39 U/L (12-53); Potassium 3.7 mmol/L (3.5-5.1); Sodium 134 mmol/L (136-145); Total Protein 6.8 g/dL (5.7-8.2)
--- NOTE | 2024-12-09 02:45 | ECG ---
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
--- NOTE | 2024-12-09 03:25 | DVH ---
CHEST RADIOGRAPH Indication: CHEST PAIN Technique: Single frontal view of the chest was obtained Comparison: XY CHEST PORTABLE on DOS: 01/18/24, XY CHEST XRAY 1 VIEW on DOS: 12/08/23, CHEST PORTABLE o n DOS: 12/19/18 IMPRESSION: Heart is mildly prominent in size. No focal airspace opacity, effusion, or pneumothorax. The patient is rotated to the right, however there is possible ovoid fullness around the right hilum. CT of the chest with contrast is recommended.
--- NOTE | 2024-12-09 03:32 | DVH ---
Exam: CT CT AB PEL WO CON-NO ORAL OR IV History: epig pain Comparison Study: CT CT AB PEL WO CON-NO ORAL OR IV on DOS: 10/18/24 Technique: Multidetector spiral CT of the abdomen was performed from lung bases to pubic symphysis. I maging was performed without IV contrast. Axial, coronal and sagittal multiplanar reformats were obta ined from the axial data set by the technologist. Radiation Dose : 1. Abdomen/Pelvis: CTDIvol 14.92 mGy, DLP 3.92 mGy*cm. Findings: Evaluation of solid organs is limited due to lack of intravenous contrast use. Lower Chest: No acute findings. Liver: Diffuse hypoattenuation. Unchanged cyst at the dome. Gallbladder and Biliary Tree: Cholecystectomy change. Pancreas: Mild atrophy. Spleen: Unremarkable. Adrenal Glands: Unremarkable. Kidneys/Ureters: No urinary stone or obstruction. Bladder: Grossly unremarkable for degree of distention. Pelvic Organs: Prostatomegaly. Bowel: Normal caliber without wall thickening. No evidence of appendicitis. Small hiatal hernia. Few colonic diverticula without diverticulitis. Fecal contents in small bowel loops compatible with slow transit. Vasculature: Unremarkable. Lymphadenopathy: No obvious adenopathy. Peritoneum: No ascites, free air, or fluid collection. Abdominal Wall: No significant hernia. Musculoskeletal: No acute findings. Severe right hip osteoarthrosis. IMPRESSION: 1. No acute abdominopelvic abnormality, evidence of urinary stone or obstruction, or significant meraz ge from prior exam. 2. Chronic and incidental findings above. Radiation optimization: All CT scans at this facility use at least one of these dose optimization you hniques: automated exposure control mA and/or kV adjustment per patient size (includes targeted exam s where dose is matched to clinical indication) or iterative reconstruction.
[2024-12-09 04:06] VITALS: PULSE 101
--- NOTE | 2024-12-09 04:07 | ECG ---
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
== END 2024-12-09 04:20 | disposition left against medical advice (07) ==
LOC: EDBD 01:31 → ER 01:33
DX: R07.89 Other chest pain (principal); F15.10 Other stimulant abuse, uncomplicated; E11.9 Type 2 diabetes mellitus without complications; E78.5 Hyperlipidemia, unspecified; I10 Essential (primary) hypertension; Z90.49 Acquired absence of other specified parts of digestive tract
CPT/HCPCS: 36415; 71045; 74176; 80053; 83690; 84484; 85025; 93005